=== PATIENT | female | born 1950 | race Caucasian/White ===

== ENCOUNTER → 2016-10-06 | Outpatient (REF) ==
[~2016-10-06] MED LIST: CETI10TA17; HYDR-757 PO; MULT-608 PO
--- NOTE | 2016-10-06 16:32 | Diagnostic Imaging Report ---
EXAMINATION: Three views of the wrists, bilateral exam. INDICATION: Generalized wrist and hand pain. FINDINGS: Left wrist demonstrates mild degenerative changes with subchondral stenosis and joint space narrowing along the radiocarpal and the carpometacarpal joints, mostly near the base of the thumb level. No acute fracture or dislocation. No radiopaque foreign body. The right chest demonstrates mild osteoarthritis at the radiocarpal and carpometacarpal joints with no acute fracture, dislocation, or radiopaque foreign body. IMPRESSION: [id number] osteoarthritis changes, more prominent on the left side. Dictated by: Dictated on workstation # [id number]
--- NOTE | 2016-10-06 16:40 | Diagnostic Imaging Report ---
EXAMINATION: Three views of the right and three views of the left thumb bilaterally. INDICATION: Generalized bilateral thumb pain. FINDINGS: The left thumb radiographs demonstrate an ossified well-corticated 5 mm fragment seen near the base of the proximal phalanx in the thumb, adjacent to the trapezium. This is probably a congenital ossicle or likely an old injury with related heterotopic ossification. Moderate subchondral sclerosis and joint space narrowing at the carpal/metacarpal joint at the base of the thumb are seen. The right thumb demonstrates mild degenerative changes at the base of the thumb by the carpal/metacarpal joint. No fracture or dislocation is seen. IMPRESSION: Osteoarthritic changes, moderate on the left and mild on the right, at the carpal/metacarpal joint at the base of the thumb. An ossification near the left carpal/metacarpal joint with well-corticated margins is probably a congenital ossicle or related to an old injury. Correlate clinically. Dictated by: Dictated on workstation # [id number]
== END | disposition home or self-care (01) ==
LOC: OCC 16:03
PROVIDERS: ATTEND Nurse Practitioner Family

== ENCOUNTER → 2016-12-17 | Outpatient (CLI) | payer OTHER ==
--- NOTE | 2016-12-17 12:48 | Diagnostic Imaging Report ---
PA and lateral views of the chest. COMPARISON: 08/01/2012. INDICATION: Productive cough. FINDINGS: The lungs are hyperinflated. The lungs are hyperinflated with prominent interstitial markings seen. There is mild pleural thickening. No pleural effusion or pneumothorax. The mediastinum and ashely appear unremarkable. IMPRESSION: COPD. Dictated by: Dictated on workstation # [id number]
== END ==
LOC: RAD 10:43
PROVIDERS: ATTEND Internal Medicine
DX: J44.9 Chronic obstructive pulmonary disease, unspecified (principal)
CPT/HCPCS: 71020

== ENCOUNTER → 2016-12-25 | Outpatient (CLI) | payer OTHER ==
[~2016-12-25] MED LIST changes: +RT-ALBUTEROL SULF 2.5 MG/3 ML PRE-MIX VIAL IH SCH
== END ==
LOC: RT 13:47
PROVIDERS: ATTEND Internal Medicine
DX: J44.9 Chronic obstructive pulmonary disease, unspecified (principal)
CPT/HCPCS: 94060; 94640; 94726; 94729

== ENCOUNTER → 2019-07-28 | Outpatient (CLI) | payer OTHER ==
[~2019-07-28] MED LIST changes: -RT-ALBUTEROL SULF 2.5 MG/3 ML PRE-MIX VIAL IH SCH; +RT-ALBUTEROL SULF 2.5 MG/3 ML PRE-MIX VIAL INH ONE
== END ==
LOC: RT 10:20
PROVIDERS: ATTEND Internal Medicine
DX: J44.9 Chronic obstructive pulmonary disease, unspecified (principal)
CPT/HCPCS: 94060; 94726; 94729

== ENCOUNTER → 2019-08-02 | Outpatient (CLI) | payer OTHER ==
[~2019-08-02] MED LIST changes: -RT-ALBUTEROL SULF 2.5 MG/3 ML PRE-MIX VIAL INH ONE
--- NOTE | 2019-08-02 17:34 | Diagnostic Imaging Report ---
EXAMINATION: CT Chest with intravenous contrast. TECHNIQUE: Multiple contiguous axial images were obtained through the chest after the uneventful administration of intravenous contrast. All CT scans use one or more of the following dose optimizing techniques: automated exposure control, MA and/or KvP adjustment based on a patient size and exam type, or iterative reconstruction. HISTORY: COPD COMPARISON: 08/24/2012. FINDINGS: There is fairly severe lower lobe predominant emphysema. Tree-in-bud nodules in the lung bases, lingula and right middle lobe appear increased from 2012. This is associated with bronchial wall thickening and dilation. Adnexa just above a chronic endobronchial infection. No suspicious nodules are seen. No pleural effusion or pneumothorax. Heart size is normal. No pericardial effusion. Aorta is upper limits of normal in size measuring 4.0 cm. No central pulmonary embolism. There is no axillary or supraclavicular lymphadenopathy. There is no mediastinal lymphadenopathy. There are few areas of geographic increased enhancement in the liver likely representing altered perfusion in the setting of hepatic steatosis. No suspicious liver lesions. There are no suspicious osseus lesions. IMPRESSION: 1. Fairly severe lower lobe predominant emphysema. While the patient is somewhat old for initial diagnosis of L4 and antitrypsin deficiency, the lower lobe predominance of the emphysema is unusual. 2. Increased chronic tree-in-bud nodules and bronchial wall thickening and dilation in the lower lobes and lingula as well as the right middle lobe. Findings are concerning for chronic endobronchial infection with a differential bandlike by mycobacterium avium complex. Dictated by: Dictated on workstation # [id number]
== END ==
LOC: RAD 16:23
PROVIDERS: ATTEND Internal Medicine
DX: J43.8 Other emphysema (principal); R91.8 Other nonspecific abnormal finding of lung field
CPT/HCPCS: 71260

== ENCOUNTER → 2020-06-25 | Outpatient (CLI) | payer OTHER ==
[2020-06-25 09:40] LABS: ABSOLUTE RETIC # 34 10e9/uL (24-90); BASOPHILS # (AUTO) 0.1 10^3/uL (0.0-0.1); BASOPHILS % (AUTO) 1 % (0-10); EOSINOPHILS # (AUTO) 0.1 10^3/uL (0.0-0.3); EOSINOPHILS % (AUTO) 3 % (0-10); HEMATOCRIT 40 % (35-52); HEMOGLOBIN 13.3 g/dL (11.5-16.0); LYMPHOCYTES # (AUTO) 1.8 10^3/uL (1.0-4.0); LYMPHOCYTES % (AUTO) 40 % (12-44); MEAN CORPUSCULAR HEMOGLOBIN 31 pg (25-34); MEAN CORPUSCULAR HGB CONC 33 g/dL (32-36); MEAN CORPUSCULAR VOLUME 93 fL (80-99); MEAN PLATELET VOLUME 8.8 fL (9.0-12.2); MONOCYTES # (AUTO) 0.6 10^3/uL (0.0-1.0); MONOCYTES % (AUTO) 14 % (0-12); NEUTROPHILS # (AUTO) 1.8 10^3/uL (1.8-7.8); NEUTROPHILS % (AUTO) 41 % (42-75); PLATELET COUNT 238 10^3/uL (130-400); RETICULOCYTE % 0.79 % (0.50-2.40); WHITE BLOOD COUNT 4.5 10^3/uL (4.3-11.0)
[2020-06-25 10:04] LABS: BAND NEUTROPHILS 0 %; BASOPHILS % (MANUAL) 1 %; EOSINOPHILS % (MANUAL) 3 %; LYMPHOCYTES % (MANUAL) 43 %; MONOCYTES % (MANUAL) 14 %; NEUTROPHILS % (MANUAL) 39 %; RBC MORPH NORMAL
== END ==
LOC: LAB 09:13
PROVIDERS: ATTEND Internal Medicine
DX: R79.9 Abnormal finding of blood chemistry, unspecified (principal)
CPT/HCPCS: 36415; 85007; 85027; 85045

== ENCOUNTER 2021-03-04 05:36 | Outpatient (CLI) | payer OTHER | END 2021-03-04 14:15 | disposition home or self-care (01) | LOC: PREOP 05:36 | PROVIDERS: ATTEND Surgery | DX: Z01.818 Encounter for other preprocedural examination (principal) ==

== ENCOUNTER 2021-03-11 07:06 | Day surgery (SDC) | payer OTHER ==
[2021-03-11] VITALS (8 sets, daily range): BP systolic 89–132; BP diastolic 59–74
[~2021-03-11] VITALS: Ht 165 cm; Wt 66.4 kg
[2021-03-11] MEDS ORDERED: LACTATED RINGERS 1,000 ML IV STA (07:17)
[2021-03-11] MEDS ORDERED: LACTATED RINGERS 1,000 ML IV ONE (07:20)
[2021-03-11] MEDS ORDERED: MIDAZOLAM 2 MG/2 ML (VERSED) VIAL ONE (08:04)
[2021-03-11] MEDS ORDERED: PROPOFOL INJECTION 50 ML IV ONE (08:05)
--- NOTE | 2021-03-11 08:19 | Progress Note-Pre Operative ---
Pre-Operative Progress Note H&P Reviewed The H&P was reviewed, patient examined and no changes noted. Date Seen by Provider: Mar 11, 2021 Time Seen by Provider: 08:19 Date H&P Reviewed: Mar 11, 2021 Time H&P Reviewed: 08:19 Pre-Operative Diagnosis: rectal prolapse AIDEN OTERO DO Mar 11, 2021 08:19
--- NOTE | 2021-03-11 09:06 | Discharge Inst-Simple/Standard ---
Discharge Inst-Standard Patient Instructions/Follow Up Plan of Care/Instructions/FU: 2 weeks Verenice Activity as Tolerated: Yes Discharge Diet: Regular Diet AIDEN OTERO DO Mar 11, 2021 09:06
--- NOTE | 2021-03-11 09:07 | Progress Note-Post Operative ---
Post-Operative Progess Note Surgeon (s)/Core Blower Operator (s) Surgeon AIDEN OTERO DO Core Blower Operator: na Pre-Operative Diagnosis rectal prolapse Post-Operative Diagnosis rectal inflammation Procedure & Operative Findings Date of Procedure 03/11/21 Procedure Performed/Findings colonoscopy c cold bx rectum Anesthesia Type per tomato grader Estimated Blood Loss Estimated blood loss (mL): na Specimens/Packing Specimens Removed rectum AIDEN OTERO DO Mar 11, 2021 09:07
--- NOTE | 2021-03-11 09:51 | Anesthesia-General Post-Op ---
MAC Patient Condition Mental Status/LOC: Same as Preop Cardiovascular: Satisfactory Nausea/Vomiting: Absent Respiratory: Satisfactory Pain: Controlled Complications: Absent Post Op Complications Complications None Follow Up Care/Instructions Patient Instructions None needed. Anesthesiology Discharge Order Discharge Order Patient is doing well, no complaints, stable vital signs, no apparent adverse anesthesia problems. No complications reported per nursing. BILLY LOPEZ CRNA Mar 11, 2021 09:51
--- NOTE | 2021-03-11 14:50 | OPERATIVE REPORT ---
DATE OF SERVICE: 03/11/2021 PREOPERATIVE DIAGNOSIS: Rectal prolapse. POSTOPERATIVE DIAGNOSIS: Rectal inflammation. PROCEDURE: Colonoscopy with cold biopsy rectum. SURGEON: Aiden Caldera DO ANESTHESIA: Per INBOUND CUSTOMER SERVICE REPRESENTATIVE. ESTIMATED BLOOD LOSS: None. COMPLICATIONS: None. INDICATIONS: The patient is a 70-year-old female needing colonoscopy due to rectal prolapse. She understands risks and benefits and wishes to proceed. Consent was signed in the chart. DESCRIPTION OF PROCEDURE: The patient was taken to the endoscopy suite, placed in left lateral recumbent position. Timeout was performed. Digital rectal exam was performed. There were no palpable polyps, masses or ulcerations. No present at this time. Scope was inserted in the rectum, noting the rectal inflammation. Scope was advanced all the way to cecum with minimal difficulty. Prep was adequate. Scope was then slowly retracted back. There were no polyps, masses or ulcerations within the cecum, ascending, transverse and descending and sigmoid colon. Throughout the colon, there was diverticulosis. Once in the rectum, scope was inserted and retracted multiple times, noting the rectal inflammation. No other pathology. Cold biopsy of the rectum was obtained. Scope was then slowly retracted back until completely removed. The patient tolerated procedure well without any complications. She was taken to recovery room in stable condition. RECOMMENDATIONS: The patient will continue with follow up with her colorectal surgeon. The patient will need repeat colonoscopy on as needed basis. She will followup on biopsy in 2 weeks in my office. Job ID: [id number] DocumentID: [id number] Dictated Date: 03/11/2021 09:10:10 Drywall Metal Stud Worker Date: 03/11/2021 14:49:36 Dictated By: AIDEN CALDERA DO
== END 2021-03-11 09:48 | disposition home or self-care (01) ==
LOC: ENDO 07:06
PROVIDERS: ATTEND Surgery
DX: K62.89 Other specified diseases of anus and rectum (principal); K62.3 Rectal prolapse; K57.30 Diverticulosis of large intestine without perforation or abscess without bleeding; K27.9 Peptic ulcer, site unspecified, unspecified as acute or chronic, without hemorrhage or perforation; J44.1 Chronic obstructive pulmonary disease with (acute) exacerbation; G62.9 Polyneuropathy, unspecified; Z79.899 Other long term (current) drug therapy; Z90.710 Acquired absence of both cervix and uterus; Z87.891 Personal history of nicotine dependence; Z82.49 Family history of ischemic heart disease and other diseases of the circulatory system; Z80.9 Family history of malignant neoplasm, unspecified
CPT/HCPCS: 88305

== ENCOUNTER → 2021-03-18 | Outpatient (CLI) | payer OTHER | LOC: LABNPT 06:50 | PROVIDERS: ATTEND Surgery | DX: Z53.9 Procedure and treatment not carried out, unspecified reason (principal) ==

== ENCOUNTER → 2021-04-17 | Outpatient (CLI) | payer OTHER | LOC: LABNPT 08:12 | PROVIDERS: ATTEND Surgery | DX: Z20.822 Contact with and (suspected) exposure to COVID-19 (principal) | CPT/HCPCS: 87635 ==

== ENCOUNTER → 2022-01-29 | Outpatient (CLI) | payer OTHER ==
[~2022-01-29] VITALS: Ht 165.1 cm; Wt 67.3 kg
[~2022-01-29] MED LIST changes: +ACET500C41 PO; +CHOL500049 PO; +QUER1POW MC; +TUME1CAP PO; +ZINC50TA51 PO
== END | disposition home or self-care (01) ==
LOC: PREOP 08:48
PROVIDERS: ATTEND Specialist
DX: Z01.818 Encounter for other preprocedural examination (principal)

== ENCOUNTER 2022-01-30 09:09 | Day surgery (SDC) | payer OTHER ==
[~2022-01-30] VITALS: Ht 165.1 cm; Wt 67.3 kg
[2022-01-30] MEDS ORDERED: LIDOCAINE PF 1% 2 ML VIAL IR PRN (09:30)
[2022-01-30] MEDS ORDERED: MOXIFLOXACIN OPHTH SOLN 5 MG/ML 0.3 ML SYRINGE OP ONE (09:30)
[2022-01-30] MEDS ORDERED: TIMOLOL MALEATE 0.5% 5 ML (TIMOPTIC) BTL OU PRN (09:30)
[2022-01-30] MEDS ORDERED: POVIDONE (BETADINE) OPHTH SOLN 5% 30 ML OP ONE (09:30)
[2022-01-30] MEDS: TETRACAINE 0.5% OPHTH SOLN 4 ML BTL (SINGLE DOSE ONLY) OU PRN ×4 (09:33→09:51)
[2022-01-30] MEDS: TROPICAMIDE 1% OPH SOLN (MYDRIACYL) 15 ML BTL OP SCH ×3 (09:41→09:51)
[2022-01-30] MEDS: PHENYLEPHRINE 10% OPHTH (NEO-SYN) 5 ML BTL OU SCH ×3 (09:41→09:51)
[2022-01-30 09:48] VITALS: BP 155/86
[2022-01-30] MEDS ORDERED: MIDAZOLAM 2 MG/2 ML (VERSED) VIAL ONE (10:16)
--- NOTE | 2022-01-30 10:18 | Ophthalmologist Pre-Op Note ---
Pre-Operative Progress Note H&P Reviewed The H&P was reviewed, patient examined and no changes noted. Date H&P Reviewed: January 30, 2022 Time H&P Reviewed: 10:18 Pre-Op Dx Cataract, Right Eye EVELYN HERNANDEZ MD January 30, 2022 10:18
--- NOTE | 2022-01-30 10:41 | Ophthalmology Operative Report ---
Cataract removal/placement IOL PREOPERATIVE DIAGNOSIS: Cataract Right Eye POSTOPERATIVE DIAGNOSIS: Cataract Right Eye PROCEDURE: Cataract removal and placement of posterior chamber implant, right eye SURGEON: Javed Hernandez ANESTHESIA: Topical with sedation COMPLICATIONS: None ESTIMATED BLOOD LOSS: Minimal DESCRIPTION OF PROCEDURE: After proper informed consent was obtained, the patient, a 71 female, was taken to the Operating Room and the right eye was anesthetized with tetracaine. The right eye was then prepped and draped in the usual manner. A wire lid speculum was placed. A paracentesis was made at the left hand position. Preservative free lidocaine was injected into the anterior chamber followed by viscoelastic. A clear corneal incision was made in the temporal position. A capsulorrhexis was preformed and the central nuclear and cortical material were removed. The posterior capsule was polished and Honorio 18.0 AU00T0 IOL was placed into the capsular bag. The residual viscoelastic was aspirated and balanced saline solution was injected into the anterior chamber. Moxifloxacin was injected into the anterior chamber. The wound was checked and found to be water tight. The patient tolerated the procedure well without complications. JAVED HERNANDEZ MD January 30, 2022 10:41
[2022-01-30 11:00] VITALS: BP 145/78
[2022-01-30] MEDS ORDERED: acetaZOLAMIDE ER 500 MG CAP (DIAMOX SEQUELS) PO ONE (11:30)
--- NOTE | 2022-01-30 14:00 | Anesthesia-General Post-Op ---
MAC Patient Condition Mental Status/LOC: Same as Preop Cardiovascular: Satisfactory Nausea/Vomiting: Absent Respiratory: Satisfactory Pain: Controlled Complications: Absent Post Op Complications Complications None Follow Up Care/Instructions Patient Instructions None needed. Anesthesiology Discharge Order Discharge Order Patient is doing well, no complaints, stable vital signs, no apparent adverse anesthesia problems. No complications reported per nursing. BILLY LOPEZ CRNA January 30, 2022 14:00
== END 2022-01-30 11:00 | disposition home or self-care (01) ==
LOC: SDC 09:09
PROVIDERS: ATTEND Specialist
DX: H25.9 Unspecified age-related cataract (principal); Z87.891 Personal history of nicotine dependence
CPT/HCPCS: 66984; V2632

== ENCOUNTER 2022-02-13 07:58 | Day surgery (SDC) | payer OTHER ==
[~2022-02-13] VITALS: Ht 165.1 cm; Wt 67.3 kg
[2022-02-13] MEDS ORDERED: LIDOCAINE PF 1% 2 ML VIAL IR PRN (08:00)
[2022-02-13] MEDS ORDERED: TIMOLOL MALEATE 0.5% 5 ML (TIMOPTIC) BTL OU PRN (08:00)
[2022-02-13] MEDS ORDERED: MOXIFLOXACIN OPHTH SOLN 5 MG/ML 0.3 ML SYRINGE OP ONE (08:00)
[2022-02-13] MEDS ORDERED: POVIDONE (BETADINE) OPHTH SOLN 5% 30 ML OP ONE (08:00)
[2022-02-13] MEDS: TETRACAINE 0.5% OPHTH SOLN 4 ML BTL (SINGLE DOSE ONLY) OU PRN ×4 (08:04→08:20)
[2022-02-13] MEDS: PHENYLEPHRINE 10% OPHTH (NEO-SYN) 5 ML BTL OU SCH ×3 (08:10→08:20)
[2022-02-13] MEDS: TROPICAMIDE 1% OPH SOLN (MYDRIACYL) 15 ML BTL OP SCH ×3 (08:10→08:20)
[2022-02-13 08:12] VITALS: BP 139/82
[2022-02-13] MEDS ORDERED: MIDAZOLAM 2 MG/2 ML (VERSED) VIAL ONE (08:42)
--- NOTE | 2022-02-13 08:57 | Ophthalmologist Pre-Op Note ---
Pre-Operative Progress Note H&P Reviewed The H&P was reviewed, patient examined and no changes noted. Date H&P Reviewed: February 13, 2022 Time H&P Reviewed: 08:57 Pre-Op Dx Cataract, Left Eye EVELYN HERNANDEZ MD February 13, 2022 08:57
--- NOTE | 2022-02-13 09:17 | Ophthalmology Operative Report ---
Cataract removal/placement IOL PREOPERATIVE DIAGNOSIS: Cataract Left Eye POSTOPERATIVE DIAGNOSIS: Cataract Left Eye PROCEDURE: Cataract removal and placement of posterior chamber implant, left eye SURGEON: Javed Hernandez ANESTHESIA: Topical with sedation COMPLICATIONS: None ESTIMATED BLOOD LOSS: Minimal DESCRIPTION OF PROCEDURE: After proper informed consent was obtained, the patient, a 71 female, was taken to the Operating Room and the left eye was anesthetized with tetracaine. The left eye was then prepped and draped in the usual manner. A wire lid speculum was placed. A paracentesis was made at the left hand position. Preservative free lidocaine was injected into the anterior chamber followed by viscoelastic. A clear corneal incision was made in the temporal position. A capsulorrhexis was preformed and the central nuclear and cortical material were removed. The posterior capsule was polished and an Honorio 17.5 AU00T0 was placed into the capsular bag. The residual viscoelastic was aspirated and balanced saline solution was injected into the anterior chamber. Moxifloxacin was injected into the anterior chamber. The wound was checked and found to be water tight. The patient tolerated the procedure well without complications. JAVED HERNANDEZ MD February 13, 2022 09:17
[2022-02-13 09:25] VITALS: BP 129/72
[2022-02-13] MEDS ORDERED: acetaZOLAMIDE ER 500 MG CAP (DIAMOX SEQUELS) PO ONE (10:30)
--- NOTE | 2022-02-13 13:47 | Anesthesia-General Post-Op ---
MAC Patient Condition Mental Status/LOC: Same as Preop Cardiovascular: Satisfactory Nausea/Vomiting: Absent Respiratory: Satisfactory Pain: Controlled Complications: Absent Post Op Complications Complications None Follow Up Care/Instructions Patient Instructions None needed. Anesthesiology Discharge Order Discharge Order Patient is doing well, no complaints, stable vital signs, no apparent adverse anesthesia problems. No complications reported per nursing. SONNY GRAMAJO CRNA February 13, 2022 13:47
== END 2022-02-13 09:25 | disposition home or self-care (01) ==
LOC: SDC 07:58
PROVIDERS: ATTEND Specialist
DX: H25.9 Unspecified age-related cataract (principal); Z87.891 Personal history of nicotine dependence
CPT/HCPCS: 66984; V2632